=== PATIENT | male | born 1965 | race Two or more races ===

== ENCOUNTER 2022-05-08 11:24 | Outpatient (CLI) | payer OTHER | END 2022-05-08 11:33 | disposition home or self-care (01) | LOC: RAD 11:24 | PROVIDERS: ATTEND Specialist | DX: J45.998 Other asthma (principal) ==

== ENCOUNTER 2023-03-21 14:00 | Outpatient (CLI) | payer OTHER | END 2023-03-21 14:15 | disposition home or self-care (01) | LOC: TOM 14:00 | PROVIDERS: ATTEND Specialist | DX: M51.9 Unspecified thoracic, thoracolumbar and lumbosacral intervertebral disc disorder (principal) ==